=== PATIENT | male | born 1970 | race Caucasian/White ===

== ENCOUNTER 2019-03-25 15:17 | Emergency (ER) | payer OTHER ==
[~2019-03-25] VITALS: Ht 193 cm; Wt 113.4 kg
[~2019-03-25 15:17] MED LIST: ACET120S PO; ACET500 PO; AMLO10 PO; ASPI81EC PO; ATOR80 PO; AZIT250 PO; BUPR150T2 PO; Bactrim Ds Tab1 EACH PO; CARI350; CARI350 PO; CARV6.25 PO; CHOLESTEROL MED; CHOLESTEROL MED?; CIALIS; CYCL10 PO; Cleocin HCl300 MG PO; DIAZ2 PO; ERYT.5TO OU; FISH1000 PO; HYDACE10B PO; HYDACE5; HYDACE5 PO; HYDMOR4 PO; IBUP400 PO; IBUP600 PO; IBUP800 PO; LISHYD1012 PO; LISHYD2025 PO; LORA10ER PO; METPRE4DP PO; NEOPOLHYD OU; NORT10 PO; Naprosyn500 MG PO; Norco 5-325 Ta1 EACH PO; OXYACE5T PO; OXYACE7.5T PO; PROM25 PO; Percocet 10-321 EACH PO; Percocet 5-3251 EACH PO; Prednisone10 MG PO; Prednisone20 MG PO; ROSU10TA PO; RXHYDMOR2 PO; SERT50 PO; VARE1 PO; [UNRECOGNIZED DRUG - REMARK]; [UNRECOGNIZED DRUG - REMARK]
[2019-03-25] MEDS ORDERED: ONDA4ODT MM (17:00)
[2019-03-25] MEDS ORDERED: Robaxin-750750 MG PO (17:00)
== END 2019-03-25 17:10 | disposition home or self-care (01) ==
LOC: ER 15:17
DX: S09.90XA Unspecified injury of head, initial encounter (principal); S16.1XXA Strain of muscle, fascia and tendon at neck level, initial encounter; I10 Essential (primary) hypertension; E78.00 Pure hypercholesterolemia, unspecified; F17.200 Nicotine dependence, unspecified, uncomplicated; Z88.0 Allergy status to penicillin; Z79.899 Other long term (current) drug therapy; W10.9XXA Fall (on) (from) unspecified stairs and steps, initial encounter; Y92.009 Unspecified place in unspecified non-institutional (private) residence as the place of occurrence of the external cause
CPT/HCPCS: 70450; 72125; 99283-25

== ENCOUNTER 2020-03-29 09:34 | Emergency (ER) | payer OTHER ==
[~2020-03-29] VITALS: Ht 193 cm; Wt 117.9 kg
[~2020-03-29 09:34] MED LIST changes: +HYDR1TAB94 PO; +ONDA4ODT MM; +Robaxin-750750 MG PO; +Valium5 MG PO
[2020-03-29] MEDS ORDERED: TRAM50 PO (11:00)
== END 2020-03-29 11:15 | disposition home or self-care (01) ==
LOC: ER 09:34
DX: M75.31 Calcific tendinitis of right shoulder (principal); I10 Essential (primary) hypertension; F17.210 Nicotine dependence, cigarettes, uncomplicated; Z88.0 Allergy status to penicillin; Z79.899 Other long term (current) drug therapy
CPT/HCPCS: 73030; 99283-25

== ENCOUNTER 2020-04-22 15:42 | Inpatient (IN) | payer OTHER ==
[~2020-04-22] VITALS: Ht 193 cm; Wt 107.2 kg
[~2020-04-22 15:42] MED LIST changes: +TRAM50 PO
[2020-04-22 16:08] LABS: BASOPHILS ABSOLUTE AUTO 0.03 K/mm3 (0.00-0.23); BASOPHILS PERCENT AUTO 0 % (0-2); EOSINOPHILS ABSOLUTE AUTO 0.02 K/mm3 (0.00-0.68); EOSINOPHILS PERCENT AUTO 0 % (0-6); Hematocrit 50.3 % (37.0-53.0); Hemoglobin 17.5 g/dL (13.5-17.5); IMMATURE GRAN ABSOLUTE AUTO 0.04 K/mm3 (0.00-0.10); IMMATURE GRAN PERCENT AUTO 0 % (0-1); LYMPHOCYTES ABSOLUTE AUTO 2.33 K/mm3 (0.84-5.20); LYMPHOCYTES PERCENT AUTO 20 % (21-46); MONOCYTES ABSOLUTE AUTO 0.38 K/mm3 (0.16-1.47); MONOCYTES PERCENT AUTO 3 % (4-13); Mean Corpuscular HGB 30.2 pg (26.0-34.0); Mean Corpuscular HGB Conc 34.8 g/dL (31.5-36.5); Mean Corpuscular Volume 87 fL (80-100); Mean Platelet Volume 9.8 fL (9.1-12.4); NEUTROPHILS ABSOLUTE AUTO 9.03 K/mm3 (1.96-9.15); NEUTROPHILS PERCENT AUTO 76 % (41-73); Platelet Count 249 K/mm3 (150-400); RDW Coefficient Variation 13.4 % (11.7-14.2); RDW Standard Deviation 42.6 fL (35.1-46.3); Red Blood Cell Count 5.79 M/mm3 (4.30-5.90); White Blood Cell Count 11.83 K/mm3 (4.00-11.30)
[2020-04-22 16:42] LABS: Alanine Aminotransfer (ALT/SGP 65 U/L (12-78); Albumin, Blood 3.9 g/dL (3.4-5.0); Albumin/Globulin Ratio 1.2 (0.8-1.8); Alk Phos 65 U/L (50-136); Anion Gap 7 mmol/L (6-16); Aspartate Aminotrans (AST/SGOT 195 U/L (12-37); Bilirubin, Total 0.3 mg/dL (0.1-1.0); Blood Urea Nitrogen 14 mg/dL (8-24); Bun/Creatinine Ratio 15.9 (12.0-20.0); CO2, Blood 24 mmol/L (21-32); Calcium, Blood 9.4 mg/dL (8.5-10.1); Chloride, Blood 108 mmol/L (98-108); Creatinine, Blood 0.88 mg/dL (0.60-1.20); Globulin, Blood 3.3 g/dL (2.2-4.0); Glomerular Filtration Rate >60 (60-); Glucose, Blood 107 mg/dL (70-99); Potassium, Blood 4.1 mmol/L (3.5-5.5); Sodium, Blood 139 mmol/L (136-145); Total Protein, Blood 7.2 g/dL (6.4-8.2)
[2020-04-22 17:15] LABS: Calcium, Ionized (POC) 1.22 mmol/L (1.10-1.46); Chloride (POC) 104 mmol/L (98-108); Creatinine (POC) 0.9 mg/dL (0.8-1.3); Glucose (ISTAT POC) 95 mg/dL (70-99); Hemoglobin (POC) 17.3 g/dL (13.5-17.5); Sodium (POC) 138 mmol/L (135-148); Total CO2 (POC) 27 mmol/L (21-32)
--- NOTE | 2020-04-22 20:00 | NUR ---
PT ARRIVES TO ICU 7 FROM [facility] S/P PCI WITH RIGHT GROIN FEMORAL ACCESS. PT TO ROOM AT 1905. PT ON YOLY DRIP SECONDARY TO CHEST PAIN. ORDER FOR TITRATION FOR CHEST PAIN AND FOR HYPERTENSION. PT STATES THAT HE HAS A MODERATE HEADACHE AT THIS TIME. DR JEROME COMES TO ROOM. VERBAL ORDERS RECEIVED. PT'S AND HIS DAUGHTER COME TO THE ROOM. PT HAS FEMSTOP OVER PUNCTURE SITE WITH PASSIVE PRESSURE SECONDARY TO SMALL HEMATOMA IN FRONT WORKER. WILL REVIEW CHART AND PLAN OF CARE FOR THIS PT.
[2020-04-22] MEDS ORDERED: Prinivil10 MG PO (22:28)
[2020-04-22] MEDS ORDERED: IBUP800 PO (22:30)
--- NOTE | 2020-04-22 23:00 | NUR ---
PT HAS NEARED COMPLETION OF RESTRICTION IN POSITIONING SECONDARY TO RIGHT GROIN ACCESS. HAVE BEEN CONSERVATIVE WITH RESTICTION SECONDARY TO HEMATOMA WHILE IN SUPERVISOR KEYMODULE ASSEMBLY. NO HEMATOMA OR OOZING TO NOTE. WILL OBTAIN ORTHSTATIC BLOOD PRESSURES ON NEXT GROIN CHECK IF STABLE.
--- NOTE | 2020-04-23 01:31 | NUR ---
PT HAS BEEN OFF NITRO DRIP SINCE EARLIER. NO CHEST PAIN AT THIS TIME. ORTHOSTATIC BLOOD BLOOD PRESSURES DONE. SEE FLOWSHEET FOR DETAILS. NO MAJOR CHANGES IN PRESSURES WITH POSITION CHANGES. NO HEMATOMA OR OOZING AFTER BEING OUT OF BED. NO COMPLAINTS OF NAUSEA. WILL CONTINUE TO MONITOR.
[2020-04-23 03:37] LABS: BASOPHILS ABSOLUTE AUTO 0.02 K/mm3 (0.00-0.23); BASOPHILS PERCENT AUTO 0 % (0-2); EOSINOPHILS ABSOLUTE AUTO 0.03 K/mm3 (0.00-0.68); EOSINOPHILS PERCENT AUTO 0 % (0-6); Hematocrit 48.8 % (37.0-53.0); Hemoglobin 16.8 g/dL (13.5-17.5); IMMATURE GRAN ABSOLUTE AUTO 0.03 K/mm3 (0.00-0.10); IMMATURE GRAN PERCENT AUTO 0 % (0-1); LYMPHOCYTES PERCENT AUTO 23 % (21-46); MONOCYTES ABSOLUTE AUTO 0.63 K/mm3 (0.16-1.47); MONOCYTES PERCENT AUTO 8 % (4-13); Mean Corpuscular HGB 29.9 pg (26.0-34.0); Mean Corpuscular HGB Conc 34.4 g/dL (31.5-36.5); Mean Corpuscular Volume 87 fL (80-100); Mean Platelet Volume 9.7 fL (9.1-12.4); NEUTROPHILS ABSOLUTE AUTO 5.77 K/mm3 (1.96-9.15); NEUTROPHILS PERCENT AUTO 69 % (41-73); Platelet Count 219 K/mm3 (150-400); RDW Coefficient Variation 13.5 % (11.7-14.2); RDW Standard Deviation 43.2 fL (35.1-46.3); Red Blood Cell Count 5.61 M/mm3 (4.30-5.90); White Blood Cell Count 8.38 K/mm3 (4.00-11.30)
[2020-04-23 03:53] LABS: Anion Gap 6 mmol/L (6-16); Blood Urea Nitrogen 11 mg/dL (8-24); CO2, Blood 26 mmol/L (21-32); Calcium, Blood 9.5 mg/dL (8.5-10.1); Chloride, Blood 107 mmol/L (98-108); Creatinine, Blood 0.92 mg/dL (0.60-1.20); Glomerular Filtration Rate >60 (60-); Glucose, Blood 100 mg/dL (70-99); Potassium, Blood 4.4 mmol/L (3.5-5.5); Sodium, Blood 139 mmol/L (136-145)
--- NOTE | 2020-04-23 06:30 | NUR ---
PT HAS BEEN ABLE TO MOVE ABOUT IN BED ON HIS OWN. UP TO VOID. NO COMPLAINTS OF CHEST PAIN OR PRESSURE. DENIES DIZZINESS. REMAINS OFF NITRO DRIP. RIGHT GROIN SITE WITHOUT HEMATOMA OR OOZING. GOOD DISTAL CMS CHECKS. WILL CONTINUE TO MONITOR PT, AND WILL REPORT OFF TO ONCOMING RN.
--- NOTE | 2020-04-23 07:48 | NUR ---
Assumed care of pt at 0700. Bedside report received from Mat ALLEN. Pt A&O x 4. Answers questions. Follows commands. Verbalizes needs. Pleasant and cooperative with care. Pt on room air. SpO2 90% or greater. SR with BBB per monitor. Rate 80s. Puncture site to right groin from right femoral artery access for PCI. Site free of new drainage. No bruising or hematoma. Color, sensation, pulses, capillary refill equal BLE. Pt denies chest pain, shortness of breath, lightheadedness or dizziness.
--- NOTE | 2020-04-23 10:30 | NUR ---
Dr Francisco Almanzar, pig machine operator helper, in to see patient. Provider states that he will review the echocardiogram and if it looks "good", he will discharge the patient today. This RN inquired if provider would like a coronary risk panel. Provider states this would be more appropriate for outpatient follow up instead of after an acute ND. Provider states pt to follow up with cardiology 2 weeks after discharge.
--- NOTE | 2020-04-23 12:15 | NUR ---
ADMIT: 04/22/20DISCHARGE: DX: STEMI CC: MARIE CALL: RESIDENCE: home w/ spouse CAREGIVER:Eboni Abraham, Spouse / Partner, DX: HTN, anxiety & depression, thromboangitis obliterans, see list DME: none CCM: none HOME HEALTH: None SUMMARY:Admit: 04/22/20 04/23/20- pt had angiogram completed yesterday. -francisco
--- NOTE | 2020-04-23 12:53 | NUR ---
Echocardiogram performed.
[2020-04-23] MEDS ORDERED: ASPI81CH PO (14:01)
[2020-04-23] MEDS ORDERED: ATOR80 PO (14:02)
[2020-04-23] MEDS ORDERED: METO50ER PO (14:03)
[2020-04-23] MEDS ORDERED: TICA90TA PO (14:03)
--- NOTE | 2020-04-23 14:57 | NUR ---
Patient discharged from unit at 1450 with spouse. Discharge education given to patient and spouse. Pt discharged with stent card in his posession. Medications faxed to [facility]. Pt did not have orders for nicotine patches, however he said his strategy for stopping smoking is to taper down instead of quit "cold-turkey". Pt educated on new medications and when to take them, as well as side effects. Pt verbalized understanding. Educated on groin site care and what to do if it bleeds. Pt verbalizes understanding. Pt signed Plavix/Brilinta contract and groin site care instructions. This RN scheduled pt's follow up appointment with Dr Jones. Called [facility] medicine to schedule follow up, office stated they would call patient for follow up appointment.
== END 2020-04-23 14:50 | disposition home or self-care (01) | DRG 247 ==
LOC: ER 15:42 → ICUW 17:16 → ICUE 18:29
PROVIDERS: Emergency Medicine; Physician Assistant; ADMIT Internal Medicine Interventional Cardiology
PROC: 4A023N7 Measurement of Cardiac Sampling and Pressure, Left Heart, Percutaneous Approach (ICD-10-PCS; principal; 2020-04-22)
PROC: 027034Z Dilation of Coronary Artery, One Artery with Drug-eluting Intraluminal Device, Percutaneous Approach (ICD-10-PCS; 2020-04-22)
PROC: 02703ZZ Dilation of Coronary Artery, One Artery, Percutaneous Approach (ICD-10-PCS; 2020-04-22)
PROC: B2111ZZ Fluoroscopy of Multiple Coronary Arteries using Low Osmolar Contrast (ICD-10-PCS; 2020-04-22)
PROC: B241ZZ3 Ultrasonography of Multiple Coronary Arteries, Intravascular (ICD-10-PCS; 2020-04-22)
DX: I21.09 ST elevation (STEMI) myocardial infarction involving other coronary artery of anterior wall (principal); I10 Essential (primary) hypertension; M54.9 Dorsalgia, unspecified; G89.29 Other chronic pain; F17.210 Nicotine dependence, cigarettes, uncomplicated; Z79.899 Other long term (current) drug therapy; Z79.891 Long term (current) use of opiate analgesic
CPT/HCPCS: 36415; 71046; 80047; 80048; 80053; 84484; 85014; 85025; 85347; 92921; 92941; 92978; 93005; 93010; 93306; 93454; 99152; 99153; 99285-25; A9270; C1725; C1753; C1760; C1769; C1874; C1887; C1894; C9606; J1644; J2250; J3010; J3246; J7030; Q9967

== ENCOUNTER 2021-10-19 06:43 | Inpatient (IN) | payer OTHER ==
[~2021-10-19] VITALS: Ht 188 cm; Wt 118.3 kg
[~2021-10-19 06:43] MED LIST changes: +ASPI81CH PO; +AZIT500 PO; +LIDO700A20 TOP; +METO50ER PO; +Prinivil10 MG PO; +TICA90TA PO
[2021-10-19 06:59] LABS: BASOPHILS ABSOLUTE AUTO 0.02 K/mm3 (0.00-0.23); BASOPHILS PERCENT AUTO 0 % (0-2); Base Excess Venous 4.5 mmol/L; Bicarbonate Venous 25.7 mmol/L (24.0-30.0); EOSINOPHILS ABSOLUTE AUTO 0.35 K/mm3 (0.00-0.68); EOSINOPHILS PERCENT AUTO 4 % (0-6); Hematocrit 48.1 % (37.0-53.0); Hemoglobin 16.5 g/dL (13.5-17.5); IMMATURE GRAN ABSOLUTE AUTO 0.02 K/mm3 (0.00-0.10); IMMATURE GRAN PERCENT AUTO 0 % (0-1); LYMPHOCYTES ABSOLUTE AUTO 1.83 K/mm3 (0.84-5.20); LYMPHOCYTES PERCENT AUTO 21 % (21-46); MONOCYTES ABSOLUTE AUTO 0.35 K/mm3 (0.16-1.47); MONOCYTES PERCENT AUTO 4 % (4-13); Mean Corpuscular HGB 30.1 pg (26.0-34.0); Mean Corpuscular HGB Conc 34.3 g/dL (31.5-36.5); Mean Corpuscular Volume 88 fL (80-100); NEUTROPHILS ABSOLUTE AUTO 6.25 K/mm3 (1.96-9.15); NEUTROPHILS PERCENT AUTO 71 % (41-73); PCO2 Venous 55.5 mmHg (38-42); Platelet Count 273 K/mm3 (150-400); RDW Coefficient Variation 12.6 % (11.7-14.2); RDW Standard Deviation 41.1 fL (35.1-46.3); Red Blood Cell Count 5.49 M/mm3 (4.30-5.90); White Blood Cell Count 8.82 K/mm3 (4.00-11.30); pH Blood Venous 7.35 (7.34-7.37)
[2021-10-19 07:16] LABS: Albumin, Blood 3.5 g/dL (3.4-5.0); Albumin/Globulin Ratio 0.9 (0.8-1.8); Bilirubin, Total 0.2 mg/dL (0.1-1.0); Bun/Creatinine Ratio 14.7 (12.0-20.0); Calcium, Blood 9.6 mg/dL (8.5-10.1); Creatinine, Blood 0.89 mg/dL (0.60-1.20); Globulin, Blood 4.1 g/dL (2.2-4.0); Potassium, Blood 4.5 mmol/L (3.5-5.5); Total Protein, Blood 7.6 g/dL (6.4-8.2)
[2021-10-19 07:58] LABS: Influenza A, PCR NEGATIVE (NEGATIVE); Influenza B, PCR NEGATIVE (NEGATIVE); Resp Syncytial Virus, PCR NEGATIVE (NEGATIVE); SARS-Cov-2 (COVID-19) PCR, MMC NEGATIVE (NEGATIVE)
[2021-10-19] MEDS ORDERED: BENZONATATE100 MG PO (08:55)
[2021-10-19] MEDS ORDERED: OMEP20ER PO (08:56)
[2021-10-19] MEDS ORDERED: CLOP75 PO (08:57)
[2021-10-19 09:28] LABS: Anti-Xa UFH, PHA Monitoring <0.10 IU/mL; International Normalized Ratio 1.03; Prothrombin Time Results 10.8 Sec (9.7-11.5)
--- NOTE | 2021-10-19 12:30 | NUR ---
INITIAL ASSESSMENT PATIENT ARRIVED TO ICU FROM ER AROUND 1155. PATIENT ABLE TO TRANSFER SELF TO ICU BED. PATIENT ALERT AND ORIENTED X 4. AFEBRILE. SBA FOR LINES/ CORDS. PATIENT COMPLAINS OF 6/10 PAIN IN "LUNGS". PATIENT SATTING 90% AND GREATER ON 5 L NC. AMRITA CLEAR; RHONCHI NOTED IN ALL OTHER LUNG LOBES. PATIENT SOB WITH EXERTION. PATIENT HAS COUGH THAT OCCASIONALLY PRODUCES THICK, SILVA SPUTUM. PATIENT IN SR/ ST WITH BBB, HR 90S TO LOW 100S. SBP LOW 100S TO 1-TEENS. GI WNL. WNL. SKIN APPEARS C/D/I. HEPARIN INFUSING AT 15 UNITS/ KG/ HOUR. AT BEDSIDE. PATIENT ORIENTED TO UNIT, ROOM AND CALL LIGHT. BED LOW, CALL LIGHT IN REACH. WILL CONTINUE TO MONITOR THROUGHOUT SHIFT.
--- NOTE | 2021-10-19 15:29 | NUR ---
SHIFT SUMMARY PATIENT REMAINED ALERT AND ORIENTED X 4, AFEBRILE. PATIENT HAS BEEN RELAXING IN ROOM, WATCHING TV WITH . NICOTINE PATCH PLACED ON PATIENT THIS SHIFT PER PATIENT REQUEST. PATIENT SMOKES 1 PPD. PATIENT HAS BEEN GIVEN SCHEDULED IBUPROFEN AND PRN MORPHINE FOR COMPLAINTS OF "LUNG PAIN". PATIENT STATED IBUPROFEN DID NOT HELP BUT THAT MORPHINE DID. PATIENT REMAINS SATTING WELL ON 5 L NC. PATIENT REMAINS SOB WITH EXERTION. PATIENT CONTINUES TO HAVE COUGH WITH OCCASIONAL THICK, SILVA MUCUS. PATIENT REMAINED SR TO ST WITH BBB, HR 70S TO LOW 100S. SBP LOW 100S TO 140S. NO BM THIS SHIFT. PATIENT ON CLEAR LIQUID DIET; TOLERATING WELL. WNL. URINE YELLOW IN COLOR. HEPARIN REMAINS AT 15 UNITS/ KG/ HOUR. NO COMPLAINTS AT THIS TIME. PATIENT WILL BE TRANSFERRING TO PCU, ROOM 05 SHORTLY.
--- NOTE | 2021-10-19 15:58 | NUR ---
PATIENT SUCCESSFULLY TRANSFERRED TO PCU, ROOM 05. BELONGINGS SENT WITH PATIENT. FOLLOWED.
--- NOTE | 2021-10-19 17:16 | NUR ---
SHIFT SUMMARY ASSUMED CARE FROM ICU. A/A/OX4, HEPARIN INFUSING AT 15UNITS/KG. INDEPENDANT IN ROOM, SPOUSE AT BEDSIDE. EVALUATED BY DR. BECKER IN EVENING, PLAN FOR PROCEDURE TOMORROW, NPO AFTER MIDNIGHT. WILL CONTINUE TO MONITOR AND TREAT UNTIL CHANGE OF SHIFT.
--- NOTE | 2021-10-19 17:48 | NUR ---
HEPARIN BOLUS OF 4,800UNITS GIVEN AND INFUSION TITRATED UP TO 19UNITS/KG PER PHARMACY EMAR.
--- NOTE | 2021-10-20 05:38 | NUR ---
SHIFT SUMMARY Assumed care of pt at 1900. A/Ox4, independent in room. C/o R lung and L flank area pain, relieved with repositioning and meds per emar. Maintains over 92% on 5L NC, LS dim t/o. Tachypnea and shallow breathing pattern noted and TORRES. SR on tele with BBB and PVC. SBP low 100's with MAP>65. Will report to dayshift ALEJANDRO.
[2021-10-20 07:17] LABS: BASOPHILS ABSOLUTE AUTO 0.04 K/mm3 (0.00-0.23); BASOPHILS PERCENT AUTO 0 % (0-2); EOSINOPHILS ABSOLUTE AUTO 0.22 K/mm3 (0.00-0.68); EOSINOPHILS PERCENT AUTO 2 % (0-6); Hematocrit 44.7 % (37.0-53.0); Hemoglobin 14.9 g/dL (13.5-17.5); IMMATURE GRAN ABSOLUTE AUTO 0.02 K/mm3 (0.00-0.10); IMMATURE GRAN PERCENT AUTO 0 % (0-1); LYMPHOCYTES PERCENT AUTO 19 % (21-46); MONOCYTES PERCENT AUTO 4 % (4-13); Mean Corpuscular HGB 29.7 pg (26.0-34.0); Mean Corpuscular HGB Conc 33.3 g/dL (31.5-36.5); Mean Corpuscular Volume 89 fL (80-100); Mean Platelet Volume 9.3 fL (9.1-12.4); NEUTROPHILS PERCENT AUTO 74 % (41-73); Platelet Count 239 K/mm3 (150-400); RDW Coefficient Variation 13.1 % (11.7-14.2); RDW Standard Deviation 42.8 fL (35.1-46.3); Red Blood Cell Count 5.01 M/mm3 (4.30-5.90); White Blood Cell Count 9.88 K/mm3 (4.00-11.30)
[2021-10-20 07:27] LABS: Magnesium, Blood 2.1 mg/dL (1.6-2.4)
[2021-10-20 07:28] LABS: Albumin, Blood 3.2 g/dL (3.4-5.0); Albumin/Globulin Ratio 0.9 (0.8-1.8); Bilirubin, Total 0.4 mg/dL (0.1-1.0); Bun/Creatinine Ratio 25.9 (12.0-20.0); Creatinine, Blood 0.89 mg/dL (0.60-1.20); Globulin, Blood 3.6 g/dL (2.2-4.0); Total Protein, Blood 6.8 g/dL (6.4-8.2)
--- NOTE | 2021-10-20 07:40 | NUR ---
INITIAL ASSESSMENT: Patient is awake sitting up in bed visiting with his . He is alert and oriented. He reports 7/10 lower back and bilateral abd pain, he is medicated with ibuprophen and Morphine. HRR, SR in the 90s. LS DIM T/O, Biox 96% on 5l NC. Pt is tachypnec with activity. BT+, no abd tenderness with light palpation. PPP. VSS. Patient given AM meds. Hep gtt infusing at 19u/kg/hr. He denies other needs at this time. Call light in reach, Will continue to monitor.
--- NOTE | 2021-10-20 10:13 | NUR ---
[facility] staff at bedside to take patient down for thrombectomy.
--- NOTE | 2021-10-20 12:50 | NUR ---
PATIENT WAS TRANSFERRED TO ICU 06 POST CATH. REPORT GIVEN TO DINA CABIN MAN.
--- NOTE | 2021-10-20 13:18 | NUR ---
PT TO ICU FROM RN NEONATAL ICU. PT IS AWAKE AND ALERT AND ORIENTED. HE IS LYING FLAT/SUPINE IN THE BED. HE HAS AN A-LINE TO HIS RIGHT FEM ARTERY AND A V-STASIS PATCH WITH A SILK STITCH IS IN PLACE FOR THE VENOUS ACCESS THAT OCCURED IN THE RN NEONATAL ICU. HE CAME ON ROOM AIR SATURATIONS 88%. HE WAS PUT IN 2L NC HUMIDIFIED OXYGEN TO KEEP SAO2 AT 92%. HE HAS EXPIRATORY WHEEZES TO RIGHT LUNG AND CLEAR LUNG SOUNDS ON LEFT. HE HAS A SOFT ABD. AND POSITIVE BT'S. HIS ARTERIAL SBP IS 20-30 POINTS HIGHER THAN HIS RIGH FORARME NIBP NUMBERS. PULSES PALPABLE X 4 EXT. IV TO LEFT AC IS SL. CARDIAC RHYTHM IS SINUS TO SINUS TACH AT THIS TIME. PATIENT NOT COMPLAINING OF PAIN OR SOB AT THIS TIME. AND DAUGHTER BROUGHT TO ROOM, FAMILY UPDATED WITH PATIENT TOGETHER. WILL CONTINUE TO FOLLOW DIRECTED.
--- NOTE | 2021-10-20 19:00 | NUR ---
ASSUMED CARE PT AWAKE AND ALERT. ORIENTED X4. LAYING IN BED AT 20 DEGREES, WATCHING TV. APPEARS COMFORTABLE AT THIS TIME. MONITOR SHOWS SR W/ BBB. VSS AT THIS TIME. HEPARIN GTT INFUSING AT 19U/KG/HR. ROSELYN TO RIGHT FEMORAL. R FEMORAL VENOUS SITE SOFT W/ DRESSING D/I. PEDAL PULSES INTACT, FEET WARM AND PINK. TOLERATING DIET, VOIDING WITHOUT DIFFICULTLY.
--- NOTE | 2021-10-20 19:46 | NUR ---
END OF SHIFT NOTE. PATIENT HAS THE HEPARIN DRIP GOING AGAIN AT 19UNITS/HR TO PIV. HE HAS PAIN TO HIS BACK, HE IS TAKING PAIN MEDICATION AND IT IS HELPING. HIS HEAD IS IS ELEVATED TO 20 DEGREES HOWEVER THE ROSELYN TO HIS RIGHT GROIN THAT HE CAME BACK WITH FROM THE [facility] IS STILL IN PLACE. SO IS THE VENOUS STASIS SILK STITCH. DR BECKER CAME BY THIS EVENING TO FOLLOW UP AND IS LEAVING THE STITCH IN PLACE TILL TOMORROW AM. DR WATSON ALSO CAME BY TO FOLLOW UP WITH PT. OK TO PULL A LINE.. SEE ORDERS GIVEN. FAMILY HAS BEEN AT BEDSIDE ALL AFTERNOON AND HELPING TO FEED HIM. REPORT GIVEN OFF TO EVENING SHIFT TO RESUME CARE.
--- NOTE | 2021-10-20 21:15 | NUR ---
HEPARIN OFF HEPARIN TURNED OFF AT THIS TIME FOR ROSELYN REMOVAL.
--- NOTE | 2021-10-20 22:33 | NUR ---
A-LINE REMOVAL RIGHT FEMORAL ARTERIAL LINE REMOVED AT 2220. DIRECT MANUAL PRESSURE HELD FOR 10 MINUTES. SITE IS SOFT. NO BLEEDING/OOZING NOTED AT THIS TIME. TEGADERM CHG DRSG APPLIED.
[2021-10-21 03:36] LABS: BASOPHILS ABSOLUTE AUTO 0.03 K/mm3 (0.00-0.23); BASOPHILS PERCENT AUTO 0 % (0-2); EOSINOPHILS ABSOLUTE AUTO 0.15 K/mm3 (0.00-0.68); EOSINOPHILS PERCENT AUTO 2 % (0-6); Hematocrit 40.5 % (37.0-53.0); Hemoglobin 13.5 g/dL (13.5-17.5); IMMATURE GRAN ABSOLUTE AUTO 0.02 K/mm3 (0.00-0.10); IMMATURE GRAN PERCENT AUTO 0 % (0-1); LYMPHOCYTES ABSOLUTE AUTO 2.48 K/mm3 (0.84-5.20); LYMPHOCYTES PERCENT AUTO 33 % (21-46); MONOCYTES ABSOLUTE AUTO 0.41 K/mm3 (0.16-1.47); MONOCYTES PERCENT AUTO 6 % (4-13); Mean Corpuscular HGB 29.9 pg (26.0-34.0); Mean Corpuscular HGB Conc 33.3 g/dL (31.5-36.5); Mean Corpuscular Volume 90 fL (80-100); Mean Platelet Volume 9.4 fL (9.1-12.4); NEUTROPHILS ABSOLUTE AUTO 4.37 K/mm3 (1.96-9.15); NEUTROPHILS PERCENT AUTO 59 % (41-73); Platelet Count 194 K/mm3 (150-400); RDW Coefficient Variation 12.9 % (11.7-14.2); RDW Standard Deviation 42.6 fL (35.1-46.3); Red Blood Cell Count 4.52 M/mm3 (4.30-5.90); White Blood Cell Count 7.46 K/mm3 (4.00-11.30)
[2021-10-21 04:01] LABS: Bun/Creatinine Ratio 28.8 (12.0-20.0); Calcium, Blood 8.7 mg/dL (8.5-10.1); Creatinine, Blood 0.83 mg/dL (0.60-1.20); Potassium, Blood 4.2 mmol/L (3.5-5.5)
--- NOTE | 2021-10-21 05:50 | NUR ---
SHIFT SUMMARY NO ACUTE CHANGES DURING NOC. SLEPT INTERMITTENTLY. ORIENTED AND COOPERATIVE WITH CARE WHEN AWAKE. VSS DURING NOC. HR 50S-60s WHEN ASLEEP. REMAINS ON 1.5L NC- SATS STABLE. DENIES C/O SOB OF DYSPNEA. MEDICATED WITH MS 2MG IV X 3 DOSES DURING SHIFT FOR C/O BACK PAIN THAT WRAPS AROUND TO ABD. TOLERATING DIET. VOIDING WITHOUT DIFFICULTY. HEPARIN GTT INCREASED FROM 19 UNITS/KG/HR TO 21 UNITS/KG/HR PER PHARMACY. RIGHT FEMORAL ARTERIAL DC'D EARLIER IN SHIFT- SITE IS SOFT. RIGHT FEMORAL VENOUS ACCESS SITE IS SOFT WITH DRSG C/D/I. WILL REPORT TO ONCOMING RN WHEN AVAILABLE.
--- NOTE | 2021-10-21 09:48 | NUR ---
AM SHIFT SUMMARY: ASSUMED CARE OF PATIENT AT 0700. PT ALERT AND ORIENTED THIS MORNING WITH PT'S AT BEDSIDE AT 0730. PT HAS FULL ROM AND INDEPENDENT BED MOBILITY AT THIS TIME. PT HAS CLEAR L/S THROUGHOUT WITH NO COPMPLAINTS OF SOB; PT CURRENTLY ON RA. O2 LEVELS ARE 92< AND RR 14-16. PT NSR WITH HR IN THE 60'S AND SBP IN THE 130'S. PT IS HOOKED UP TO THE CONTINUOUS CHILD DAY CARE TEACHER AT THIS TIME. THE PT IS ON BEDREST AT THIS TIME BUT IS ABLE TO VOID INDEPENDENTLY WITH THE URINAL. THE PT HAS HYPERACTIVE BS IN ALL FOUR QUADRANTS. PT CURRENTLY ON A CARDIAC DIET. PT GIVEN FRESH WATER THIS MORNIGN WITH AM MEDS. PT'S BLE ARE COOL TO THE TOUCH, BUT CAP REFIL REMAINS < 3 SECONDS. ALL LINES FLUSHED AND REMAIN PATENT. PT HAS COMPLAINTS OF PAIN IN HIS LOWER/MID BACK REGION THAT IS DESCRIBED A CONSTANT, SHARP PAIN; PT MEDICATED PER EMAR. WILL CONTINUE TO MONITOR THROUGHOUT THE SHIFT.
--- NOTE | 2021-10-21 15:39 | NUR ---
AFTERNOON UPDATE: DR. WATSON AT BEDSIDE TO EVALUATE THE PATIENT AT 1415 AND HAS CLEARED THE PT FOR DISCHARGE PENDING LISA OPINION. THE PA WORKING WITH DR. BECKER CAME TO REMOVE THE PURSE CLOSURE AT 1510.
[2021-10-21] MEDS ORDERED: ACET325 PO (16:36)
[2021-10-21] MEDS ORDERED: NICO21TP TOP (16:37)
[2021-10-21] MEDS ORDERED: ELIQUIS5 M2 PO (16:38)
[2021-10-21] MEDS ORDERED: BUPROPION XL150 M1 PO (16:39)
--- NOTE | 2021-10-21 18:04 | NUR ---
SHIFT SUMMARY: PT CLEARED FOR DISCHARGE AT 1545. PT HAD BOTH PERIPHREAL IV'S IN THE LEFT ARM REMOVED. CLOSURE DEVICE SITE WAS WITHOUT DRAINAGE OR BLEEDING; SMALL HEMATOMA FELT DIRECTLY UNDERNEATH INSERTION SITE. PT HAD NO C/O OF PAIN IN R. GROIN SITE. THE PT WAS EDUCATED ON STANDARD CARE OF SITE. THE PT RECIEVED DISCHARGE PAPERWORK AND WAS EDUCATION ON NEW MEDICATION REGIMEN THAT WILL BE STARTED AT HOME. PT'S PRESCRIPTIONS SENT TO HIS PHARMACY OF CHOICE. REFERAL'S TO 'S OFFICE WAS SENT OUT AND THE PT WAS EDUCATED ON THE NEED TO FOLLOW-UP WITH DR. WATSON WITHIN ONE WEEK AFTER DISCHARGE. THE PT WAS GIVEN MORE INFORMATION ABOUT PE AND DVT'S AND ALL QUESTIONS WERE ANSWERED AT THIS TIME. THE PT LEFT THE UNIT AT 1650 AND WAS TRANSFERRED TO HIS DAUGHTER VEHICLE VIA WHEELCHAIR.
== END 2021-10-21 17:00 | disposition home or self-care (01) | DRG 163 ==
LOC: ER 06:43 → PCU 06:44 → ICUW 06:44 → ICUE 11:48 → PCU 15:24 → ICUE 10-20 12:15
PROVIDERS: Emergency Medicine; ADMIT Internal Medicine
PROC: 02CR3ZZ Extirpation of Matter from Left Pulmonary Artery, Percutaneous Approach (ICD-10-PCS; principal; 2021-10-20)
PROC: 02CQ3ZZ Extirpation of Matter from Right Pulmonary Artery, Percutaneous Approach (ICD-10-PCS; 2021-10-20)
PROC: 02CP3ZZ Extirpation of Matter from Pulmonary Trunk, Percutaneous Approach (ICD-10-PCS; 2021-10-20)
PROC: 5A09357 Assistance with Respiratory Ventilation, Less than 24 Consecutive Hours, Continuous Positive Airway Pressure (ICD-10-PCS; 2021-10-20)
DX: I26.92 Saddle embolus of pulmonary artery without acute cor pulmonale (principal); J96.01 Acute respiratory failure with hypoxia; I82.452 Acute embolism and thrombosis of left peroneal vein; I82.432 Acute embolism and thrombosis of left popliteal vein; I82.412 Acute embolism and thrombosis of left femoral vein; Z20.822 Contact with and (suspected) exposure to COVID-19; E78.5 Hyperlipidemia, unspecified; F41.9 Anxiety disorder, unspecified; I25.10 Atherosclerotic heart disease of native coronary artery without angina pectoris; E78.00 Pure hypercholesterolemia, unspecified; T68.XXXA Hypothermia, initial encounter; I10 Essential (primary) hypertension; G89.29 Other chronic pain; M54.9 Dorsalgia, unspecified; F17.210 Nicotine dependence, cigarettes, uncomplicated; Z71.6 Tobacco abuse counseling; I25.2 Old myocardial infarction; Z98.1 Arthrodesis status; Z95.5 Presence of coronary angioplasty implant and graft; Z98.890 Other specified postprocedural states; Z88.0 Allergy status to penicillin; Z79.02 Long term (current) use of antithrombotics/antiplatelets; Z79.82 Long term (current) use of aspirin; Z79.899 Other long term (current) drug therapy
CPT/HCPCS: 0241U; 36015; 36245; 36415; 37184; 37185; 71045; 71260; 75710; 75741; 75820; 75825; 76937; 80048; 80053; 82803; 83735; 83880; 84484; 85025; 85347; 85520; 85610; 85730; 93005; 93010; 93306; 93970; 94660; 94760; 96365; 96375; 96376; 99152; 99153; 99285-25; A9270; C1751; C1769; C1887; C1894; G0378; J1200; J1644; J1720; J2250; J2270; J2405; J3010; J7030; J7040; Q9967

== ENCOUNTER 2023-04-24 02:46 | Observation (INO) | payer OTHER ==
[2023-04-24] VITALS (19 sets, daily range): BP systolic 127–163; BP diastolic 83–106
[~2023-04-24] VITALS: Ht 188 cm; Wt 110.0 kg
[~2023-04-24 02:46] MED LIST changes: +ACET325 PO; +BENZONATATE100 MG PO; +BUPROPION XL150 M1 PO; +CLOP75 PO; +ELIQUIS5 M2 PO; +NICO21TP TOP; +OMEP20ER PO
[2023-04-24] MEDS ORDERED: Nitroglycerin 0.4 MG SUBL SL ONE (02:55)
[2023-04-24] MEDS ORDERED: Nitroglycerin 0.4 MG SUBL ONE (02:56)
[2023-04-24 03:05] LABS: BASOPHILS ABSOLUTE AUTO 0.03 K/mm3 (0.00-0.23); BASOPHILS PERCENT AUTO 1 % (0-2); EOSINOPHILS ABSOLUTE AUTO 0.14 K/mm3 (0.00-0.68); EOSINOPHILS PERCENT AUTO 2 % (0-6); Hematocrit 41.6 % (37.0-53.0); IMMATURE GRAN ABSOLUTE AUTO 0.01 K/mm3 (0.00-0.10); IMMATURE GRAN PERCENT AUTO 0 % (0-1); LYMPHOCYTES ABSOLUTE AUTO 2.52 K/mm3 (0.84-5.20); LYMPHOCYTES PERCENT AUTO 38 % (21-46); MONOCYTES ABSOLUTE AUTO 0.33 K/mm3 (0.16-1.47); MONOCYTES PERCENT AUTO 5 % (4-13); Mean Corpuscular HGB 30.8 pg (26.0-34.0); Mean Corpuscular HGB Conc 33.7 g/dL (31.5-36.5); Mean Corpuscular Volume 91 fL (80-100); Mean Platelet Volume 9.7 fL (9.1-12.4); NEUTROPHILS PERCENT AUTO 54 % (41-73); Platelet Count 222 K/mm3 (150-400); RDW Standard Deviation 43.8 fL (35.1-46.3); Red Blood Cell Count 4.55 M/mm3 (4.30-5.90); White Blood Cell Count 6.63 K/mm3 (4.00-11.30)
[2023-04-24] MEDS ORDERED: Clopidogrel Bisulfate 300 MG Cap ONE ×2 (03:08→04:06)
[2023-04-24] MEDS ORDERED: FentaNYL Citrate 50 MCG/ML 2 ML Injection IV ONE (03:15)
[2023-04-24] MEDS ORDERED: NS 1,000 ML IV ONE (03:17)
[2023-04-24 03:20] LABS: Calcium, Ionized (POC) 1.21 mmol/L (1.10-1.46); Chloride (POC) 107 mmol/L (98-108); Creatinine (POC) 1.1 mg/dL (0.8-1.3); Glucose (ISTAT POC) 114 mg/dL (70-99); Potassium (POC) 3.9 mmol/L (3.5-5.5); Sodium (POC) 143 mmol/L (135-148); Total CO2 (POC) 26 mmol/L (21-32)
[2023-04-24] MEDS ORDERED: NS 2,000 ML IV ONE (03:30)
[2023-04-24] MEDS ORDERED: NS 250 ML IV ONE (03:30)
[2023-04-24] MEDS ORDERED: Verapamil HCL 2.5 MG/ML 2ML Injection ONE (03:30)
[2023-04-24] MEDS ORDERED: Midazolam HCl 1MG / ML 2ML Vial ONE (03:31)
[2023-04-24] MEDS ORDERED: FentaNYL Citrate 50 MCG/ML 2 ML Injection ONE (03:31)
[2023-04-24 03:54] LABS: International Normalized Ratio 0.99; Prothrombin Time Results 10.4 Sec (9.7-11.5)
[2023-04-24] MEDS ORDERED: Tirofiban HCL Monohydrate 3.75 MG/15 ML Vial ONE (03:57)
[2023-04-24] MEDS ORDERED: FLU VACC QS2023-24(6MOS UP)/PF 60 MCG/0.5 ML SYRINGE IM ONE (04:00)
[2023-04-24] MEDS ORDERED: Acetaminophen 325 MG TABLET PO PRN (04:05)
[2023-04-24] MEDS ORDERED: Ondansetron HCl 2 MG / ML 2ML Vial IV PRN (04:05)
[2023-04-24] MEDS ORDERED: NS 1,000 ML IV SCH (05:00)
[2023-04-24 05:12] LABS: Albumin, Blood 3.9 g/dL (3.4-5.0); Albumin/Globulin Ratio 1.1 (0.8-1.8); Bilirubin, Total 0.3 mg/dL (0.1-1.0); Bun/Creatinine Ratio 16.7 (12.0-20.0); Calcium, Blood 9.9 mg/dL (8.5-10.1); Creatinine, Blood 1.02 mg/dL (0.60-1.20); Globulin, Blood 3.5 g/dL (2.2-4.0); Total Protein, Blood 7.4 g/dL (6.4-8.2)
[2023-04-24 05:12] LABS: BASOPHILS ABSOLUTE AUTO 0.04 K/mm3 (0.00-0.23); BASOPHILS PERCENT AUTO 1 % (0-2); EOSINOPHILS ABSOLUTE AUTO 0.07 K/mm3 (0.00-0.68); EOSINOPHILS PERCENT AUTO 1 % (0-6); Hemoglobin 15.5 g/dL (13.5-17.5); IMMATURE GRAN ABSOLUTE AUTO 0.02 K/mm3 (0.00-0.10); IMMATURE GRAN PERCENT AUTO 0 % (0-1); LYMPHOCYTES ABSOLUTE AUTO 1.15 K/mm3 (0.84-5.20); LYMPHOCYTES PERCENT AUTO 13 % (21-46); MONOCYTES ABSOLUTE AUTO 0.12 K/mm3 (0.16-1.47); MONOCYTES PERCENT AUTO 1 % (4-13); Mean Corpuscular HGB 30.7 pg (26.0-34.0); Mean Corpuscular HGB Conc 34.4 g/dL (31.5-36.5); Mean Corpuscular Volume 89 fL (80-100); Mean Platelet Volume 9.8 fL (9.1-12.4); NEUTROPHILS ABSOLUTE AUTO 7.21 K/mm3 (1.96-9.15); NEUTROPHILS PERCENT AUTO 84 % (41-73); Platelet Count 241 K/mm3 (150-400); RDW Coefficient Variation 12.9 % (11.7-14.2); RDW Standard Deviation 42.5 fL (35.1-46.3); Red Blood Cell Count 5.05 M/mm3 (4.30-5.90); White Blood Cell Count 8.61 K/mm3 (4.00-11.30)
[2023-04-24] MEDS ORDERED: Nicotine 21 MG PATCH TOP SCH (06:00)
[2023-04-24] MEDS ORDERED: Pantoprazole Sodium 40 MG Injection IV SCH (06:00)
[2023-04-24 06:02] LABS: Anion Gap 2 mmol/L (6-16); Blood Urea Nitrogen 15 mg/dL (8-24); Bun/Creatinine Ratio 18.6 (12.0-20.0); CHOL/HDL RATIO 5.6; CO2, Blood 25 mmol/L (21-32); Calcium, Blood 9.1 mg/dL (8.5-10.1); Chloride, Blood 115 mmol/L (98-108); Cholesterol 196 mg/dL (50-200); Creatinine, Blood 0.81 mg/dL (0.60-1.20); Glomerular Filtration Rate 107 (60-); Glucose, Blood 118 mg/dL (70-99); HDL Cholesterol 35 mg/dL (>39); LDL/HDL RATIO 4.2; Low Density Lipoprotein Chol 146 mg/dL (0-110); Potassium, Blood 3.8 mmol/L (3.5-5.5); Sodium, Blood 142 mmol/L (136-145); Triglycerides 73 mg/dL (30-160); Very Low Density Lipoprot Chol 14 mg/dL (6-32)
--- NOTE | 2023-04-24 06:28 | NUR ---
PT TO ROOM ICU9 FROM [facility] WITH [facility] STAFF. DENIES CP OR SOB ON ARRIVAL. TR BAND AND R RADIAL ACCESS SITE VISUALIZED WNL. ARM IMMOBILIZATION BOARD IN PLACE. MONITOR SHOWED SINUS [place] WITH HR IN 50'S. BP STABLE. PATIENT IS ON ROOM AIR WITH SATS > 95%. PIV TO LFA AND LAC, INFUSING NS AT 200mL/HR. TO BEDSIDE AND BOTH WERE ORIENTED TO ROOM. CALL LIGHT WITHIN REACH. DR. JEROME TO BEDSIDE, VENOUS DUPLEX ORDERED FOR TODAY TO ASSESS FOR DVTs D/T PT HX. WILL CONTINUE TO MONITOR AND REPORT TO ONCOMING RN.
--- NOTE | 2023-04-24 08:41 | NUR ---
AM NOTE... ASSUMED CARE OF PT AT 0700. PT IS A&Ox4. PT IS S/P STENT TO THE OM. RIGHT RADIAL SITE IS STABLE WITH TR BAND IN PLACE. PT'S VS STABLE. PT DENIES CHEST PAIN/PRESSURE. HE IS ON RA WITH O2 SATS>90% L/S CLEAR T/O DIM IN THE BASES. CALL LIGHT IN REACH WILL CONTINUE TO MONITOR.
[2023-04-24] MEDS ORDERED: Lisinopril 5 MG Tab PO SCH (09:00)
[2023-04-24] MEDS ORDERED: Clopidogrel Bisulfate 75 MG Tab PO SCH (09:00)
[2023-04-24] MEDS ORDERED: Aspirin 81 MG Chew PO SCH ×2 (09:00)
[2023-04-24] MEDS ORDERED: Metoprolol Tartrate 25 MG Tab PO SCH ×2 (09:00)
[2023-04-24] MEDS ORDERED: Heparin Sodium,Porcine 5,000 UNIT/0.5 ML SDV SC SCH (09:00)
[2023-04-24] MEDS ORDERED: Heparin Sodium,Porcine 5,000 UNIT/0.5 ML SDV SC ONE (12:00)
[2023-04-24] MEDS ORDERED: METO25 PO (13:56)
--- NOTE | 2023-04-24 14:15 | NUR ---
PT D/C HOME... PT D/C HOME AT 1415. PT DENIES ANY CHEST PAIN SINCE THIS AM. VS STABLE. WRITTEN AND VERBAL EDUCATION PROVIDED TO THE PT AND HIS , BOTH VERBALIZED THEIR UNDERSTANDING. NEW MEDICATIONS WERE FAXED TO THE PT'S PHARMACY OF CHOICE. BOTH IVs REMOVED WNL. ALL OF THE PT'S BELONGINGS WERE PACKED AND SENT WITH THE PT.
[2023-04-24] MEDS ORDERED: Atorvastatin 40 MG Tab PO SCH (21:00)
== END 2023-04-24 14:30 | disposition home or self-care (01) ==
LOC: ER 02:46 → ICUE 03:12
PROVIDERS: Internal Medicine Interventional Cardiology; Student in an Organized Health Care Education/Training Program; ADMIT Internal Medicine
DX: I24.89 Other forms of acute ischemic heart disease (principal); I25.10 Atherosclerotic heart disease of native coronary artery without angina pectoris; Z86.718 Personal history of other venous thrombosis and embolism; I10 Essential (primary) hypertension; F17.200 Nicotine dependence, unspecified, uncomplicated; Z86.711 Personal history of pulmonary embolism; Z88.0 Allergy status to penicillin
CPT/HCPCS: 36415; 76937; 80047; 80048; 80053; 80061; 83690; 84484; 85014; 85025; 85347; 85610; 86900; 86901; 93005; 93010; 93458; 93970; 94760; 96374-59; 99152; 99291-25; A9270; C1725; C1769; C1874; C1887; C1894; C9113; C9600; C9606; G0378; J1644; J2250; J3010; J3246; J7030; J7050; Q9967

== ENCOUNTER → 2023-04-26 | Outpatient (CLI) | payer OTHER ==
[~2023-04-26] MED LIST changes: +METO25 PO
== END ==
LOC: LAB 17:04 → LAB SHORT 17:04
DX: R36.1 Hematospermia (principal)
CPT/HCPCS: 87086

== ENCOUNTER 2024-10-28 20:06 | Observation (INO) | payer SELFPAY ==
[~2024-10-28] VITALS: Ht 190.5 cm; Wt 117.9 kg
[~2024-10-28 20:06] MED LIST changes: +LIPITOR80 MG PO; +LISI5 PO; -Prinivil10 MG PO
[2024-10-28] MEDS ORDERED: Morphine Sulfate 4 MG/1 ML Injection IV ONE (20:20)
[2024-10-28 20:26] LABS: Calcium, Ionized (POC) 1.13 mmol/L (1.10-1.46); Chloride (POC) 101 mmol/L (98-108); Creatinine (POC) 1.2 mg/dL (0.8-1.3); Glucose (ISTAT POC) 133 mg/dL (70-99); Hematocrit (POC) 44.0 % (41.0-53.0); Hemoglobin (POC) 15.0 g/dL (13.5-17.5); Potassium (POC) 3.8 mmol/L (3.5-5.5); Sodium (POC) 138 mmol/L (135-148); Total CO2 (POC) 24 mmol/L (21-32)
[2024-10-28 20:28] LABS: BASOPHILS ABSOLUTE AUTO 0.05 K/mm3 (0.00-0.23); BASOPHILS PERCENT AUTO 1 % (0-2); EOSINOPHILS ABSOLUTE AUTO 0.14 K/mm3 (0.00-0.68); EOSINOPHILS PERCENT AUTO 1 % (0-6); Hematocrit 40.4 % (37.0-53.0); Hemoglobin 14.0 g/dL (13.5-17.5); IMMATURE GRAN ABSOLUTE AUTO 0.02 K/mm3 (0.00-0.10); IMMATURE GRAN PERCENT AUTO 0 % (0-1); LYMPHOCYTES ABSOLUTE AUTO 4.52 K/mm3 (0.84-5.20); LYMPHOCYTES PERCENT AUTO 45 % (21-46); MONOCYTES ABSOLUTE AUTO 0.45 K/mm3 (0.16-1.47); MONOCYTES PERCENT AUTO 4 % (4-13); Mean Corpuscular HGB Conc 34.7 g/dL (31.5-36.5); Mean Corpuscular Volume 90 fL (80-100); NEUTROPHILS ABSOLUTE AUTO 4.94 K/mm3 (1.96-9.15); NEUTROPHILS PERCENT AUTO 49 % (41-73); NRBC ABSOLUTE 0.00 K/mm3 (0.00-0.02); NRBC Auto 0.0 /100 WBC (0.0-0.2); Platelet Count 237 K/mm3 (150-400); RDW Coefficient Variation 12.9 % (11.7-14.2); RDW Standard Deviation 42.7 fL (35.1-46.3)
[2024-10-28] MEDS ORDERED: Heparin Sodium 5000 Units/ML 1ML MDV IV ONE (20:35)
[2024-10-28] MEDS ORDERED: FentaNYL Citrate 50 MCG/ML 2 ML Injection ONE ×2 (20:48→21:05)
[2024-10-28] MEDS ORDERED: FentaNYL Citrate 50 MCG/ML 2 ML Injection IV ONE (20:50)
[2024-10-28 20:54] LABS: Alanine Aminotransfer (ALT/SGP 37.0 U/L (12-78); Albumin, Blood 3.3 g/dL (3.4-5.0); Albumin/Globulin Ratio 1.3 (0.8-1.8); Anion Gap 5.0 mmol/L (3-11); Aspartate Aminotrans (AST/SGOT 27.0 U/L (12-37); Bilirubin, Total 0.3 mg/dL (0.1-1.0); Blood Urea Nitrogen 17.0 mg/dL (8-24); CO2, Blood 29.0 mmol/L (21-32); Calcium, Blood 8.3 mg/dL (8.5-10.1); Chloride, Blood 106.0 mmol/L (98-108); Creatinine, Blood 1.09 mg/dL (0.60-1.20); Globulin, Blood 2.6 g/dL (2.2-4.0); Glucose, Blood 139.0 mg/dL (70-99); Potassium, Blood 3.6 mmol/L (3.5-5.5); Sodium, Blood 136.0 mmol/L (136-145); Total Protein, Blood 5.9 g/dL (6.4-8.2)
[2024-10-28] MEDS ORDERED: Nitroglycerin 2 MG/20 ML BTL ONE (21:01)
[2024-10-28] MEDS ORDERED: NS 250 ML IV ONE (21:01)
[2024-10-28] MEDS ORDERED: Verapamil HCL 2.5 MG/ML 2ML Injection ONE (21:01)
[2024-10-28] MEDS ORDERED: NS 1,000 ML IV ONE ×2 (21:01→21:05)
[2024-10-28] MEDS ORDERED: Heparin Sodium 1000 Units/ML 10ML MDV ONE ×2 (21:01→21:35)
[2024-10-28] MEDS ORDERED: Midazolam HCl 1MG / ML 2ML Vial ONE (21:05)
[2024-10-28] MEDS ORDERED: Heparin Sodium,Porcine 5,000 UNIT/0.5 ML SDV SC ONE (22:13)
[2024-10-28] MEDS ORDERED: IBUP200 PO (23:11)
[2024-10-28 23:13] VITALS: BP 138/88
[2024-10-29 00:11] VITALS: BP 140/90
[2024-10-29] MEDS ORDERED: Ondansetron HCl 2 MG / ML 2ML Vial IV PRN (00:35)
[2024-10-29] MEDS ORDERED: NS 1,000 ML IV ONE (00:35)
[2024-10-29 01:00] VITALS: BP 131/83
[2024-10-29 04:01] VITALS: BP 142/99
[2024-10-29 04:39] LABS: BASOPHILS ABSOLUTE AUTO 0.02 K/mm3 (0.00-0.23); BASOPHILS PERCENT AUTO 0 % (0-2); EOSINOPHILS ABSOLUTE AUTO 0.07 K/mm3 (0.00-0.68); EOSINOPHILS PERCENT AUTO 1 % (0-6); Hematocrit 43.9 % (37.0-53.0); Hemoglobin 15.1 g/dL (13.5-17.5); IMMATURE GRAN ABSOLUTE AUTO 0.02 K/mm3 (0.00-0.10); IMMATURE GRAN PERCENT AUTO 0 % (0-1); LYMPHOCYTES ABSOLUTE AUTO 1.46 K/mm3 (0.84-5.20); LYMPHOCYTES PERCENT AUTO 24 % (21-46); MONOCYTES ABSOLUTE AUTO 0.36 K/mm3 (0.16-1.47); MONOCYTES PERCENT AUTO 6 % (4-13); Mean Corpuscular HGB Conc 34.4 g/dL (31.5-36.5); Mean Corpuscular Volume 91 fL (80-100); NEUTROPHILS ABSOLUTE AUTO 4.10 K/mm3 (1.96-9.15); NEUTROPHILS PERCENT AUTO 68 % (41-73); NRBC ABSOLUTE 0.00 K/mm3 (0.00-0.02); NRBC Auto 0.0 /100 WBC (0.0-0.2); Platelet Count 196 K/mm3 (150-400); RDW Coefficient Variation 13.1 % (11.7-14.2); RDW Standard Deviation 43.9 fL (35.1-46.3)
[2024-10-29 05:16] LABS: Alanine Aminotransfer (ALT/SGP 38.0 U/L (12-78); Albumin, Blood 3.2 g/dL (3.4-5.0); Albumin/Globulin Ratio 1.0 (0.8-1.8); Anion Gap 7.0 mmol/L (3-11); Aspartate Aminotrans (AST/SGOT 44.0 U/L (12-37); Bilirubin, Total 0.4 mg/dL (0.1-1.0); Blood Urea Nitrogen 19.0 mg/dL (8-24); CO2, Blood 23.0 mmol/L (21-32); Calcium, Blood 8.2 mg/dL (8.5-10.1); Chloride, Blood 110.0 mmol/L (98-108); Creatinine, Blood 0.81 mg/dL (0.60-1.20); Globulin, Blood 3.1 g/dL (2.2-4.0); Glucose, Blood 108.0 mg/dL (70-99); Potassium, Blood 4.0 mmol/L (3.5-5.5); Sodium, Blood 136.0 mmol/L (136-145); Total Protein, Blood 6.3 g/dL (6.4-8.2)
--- NOTE | 2024-10-29 06:54 | NUR ---
SHIFT SUMMARY: PT TRANSFERRED TO PCU 6 FROM [facility] TREATING INSPECT[facility] AROUND 2244. PT ARRIVES IN HOSPITAL BED. PT ORIENTED TO ROOM AND CALL LIGHT. TR BAND IN PLACE, WITH A SCANT AMOUNT OF BLOOD. PT IS A&OX4. BP ELEVATED 140'S/70'S, ON RA. SR 60'S-70'S. PT STATES HE HASN'T TAKEN ANY PRESCRIPTION MEDICATIONS FOR A YEAR, D/T NO INSURANCE. HIS FIRST REQUEST TO THIS NURSE IS A NICOTINE PATCH. HE IS A CURRENT, 1 PACK A DAY SMOKER, NOT INTERRESTED IN CESSATION. TR BAND OFF, DRESSING WITH SCANT AMOUNT OF BLOOD. NO HEMATOMA, SOFT TO PALPATE. ARM BAND REMAINS IN PLACE. TOLERATING A HEART HEALTHY DIET. INDEPENDENTLY VOIDING LARGE AMOUNTS OF CLEAR, PALE YELLOW URINE IN URINAL. NO BM THIS SHIFT. BED IN LOWEST POSITION, CALL LIGHT WITHIN REACH. CALLS APPROPRIATELY AND IS ABLE TO ADVOCATE NEEDS EFFECTIVELY.
[2024-10-29 08:22] VITALS: BP 155/96
[2024-10-29] MEDS ORDERED: Enoxaparin 40 MG/0.4 ML SYR SC SCH (09:00)
[2024-10-29 10:16] VITALS: BP 147/94
[2024-10-29] MEDS ORDERED: METO50ER PO (10:25)
[2024-10-29] MEDS ORDERED: NITROGLYCERIN0.4 M3 SL (10:26)
--- NOTE | 2024-10-29 11:27 | NUR ---
DISCHARGE SUMMARY THE PT IS A&OX4, CALLS APPRORPAITELY, AND MAKES HIS NEEDS KNOWN. HE IS IND IN THE ROOM AND HAS HAD A BOWEL MOVEMENT THIS SHIFT. THE PT HAD AN ANGIOGRAM 10/28 WITH RIGHT RADIAL ACCESS. TEGADERM C/D/I. SITE WITHOUT ANY REDNESS/SWELLING/S:S OF BLEEDING/OR TENDERNESS. ON TELE HE HAS BEEN SB/SR 50'S-60'S ON TELE. PT WITH SBP 150'S. MEDICATIONS PER EMAR. HE DENIES ANY ANGINA OR CHEST PRESSURE. HE HAS BEEN ON RA W/ SP02 >93% AND DENIES ANY SOB. PT DISCHARGED AT 1125 AND IV'S WERE D/C'D. ALL BELONGINGS WITH THE PT. THE PT'S STENT CARD WAS LEFT BEHIND. THIS RN TRIED TO CALL THE PT'S AND THE PT AND WAS NOT ABLE TO GET AHOLD OF THEM. A CALLBACK VOICEMAIL WAS LEFT.
== END 2024-10-29 11:27 | disposition home or self-care (01) ==
LOC: ER 20:06 → PCU 20:07 → ER 21:40 → PCU 21:40
PROVIDERS: Student in an Organized Health Care Education/Training Program; ADMIT Internal Medicine
DX: I24.9 Acute ischemic heart disease, unspecified (principal); I25.10 Atherosclerotic heart disease of native coronary artery without angina pectoris; I11.9 Hypertensive heart disease without heart failure; I45.10 Unspecified right bundle-branch block; I25.2 Old myocardial infarction; E78.00 Pure hypercholesterolemia, unspecified; F41.8 Other specified anxiety disorders; F17.210 Nicotine dependence, cigarettes, uncomplicated; Z95.5 Presence of coronary angioplasty implant and graft; Z86.711 Personal history of pulmonary embolism; Z86.718 Personal history of other venous thrombosis and embolism; Z79.02 Long term (current) use of antithrombotics/antiplatelets; Z79.82 Long term (current) use of aspirin; Z79.899 Other long term (current) drug therapy; Z88.0 Allergy status to penicillin
CPT/HCPCS: 36415; 71045; 76937; 80047; 80053; 82947; 83880; 84484; 85014; 85025; 93005; 93010; 93306; 93454; 96374; 99152; 99153; 99285-25; A9270; C1725; C1769; C1874; C1887; C1894; C9600; J1644; J1650; J2250; J2270; J3010; J3246; J7030; J7050; Q9967

== ENCOUNTER 2024-11-07 07:40 | Inpatient (IN) | payer SELFPAY ==
[2024-11-07] VITALS (30 sets, daily range): BP systolic 127–172; BP diastolic 73–111
[~2024-11-07] VITALS: Ht 190.5 cm; Wt 112.0 kg
[~2024-11-07 07:40] MED LIST changes: +IBUP200 PO; +NITROGLYCERIN0.4 M3 SL
[2024-11-07] MEDS ORDERED: Morphine Sulfate 4 MG/1 ML Injection IV ONE ×2 (08:00→08:40)
[2024-11-07 08:09] LABS: Calcium, Ionized (POC) 1.17 mmol/L (1.10-1.46); Chloride (POC) 106 mmol/L (98-108); Creatinine (POC) 1.2 mg/dL (0.8-1.3); Glucose (ISTAT POC) 105 mg/dL (70-99); Hematocrit (POC) 48.0 % (41.0-53.0); Hemoglobin (POC) 16.3 g/dL (13.5-17.5); Potassium (POC) 4.2 mmol/L (3.5-5.5); Sodium (POC) 140 mmol/L (135-148); Total CO2 (POC) 25 mmol/L (21-32)
[2024-11-07 08:09] LABS: Calcium, Ionized (POC) 1.08 mmol/L (1.10-1.46); Chloride (POC) 108 mmol/L (98-108); Creatinine (POC) 1.1 mg/dL (0.8-1.3); Glucose (ISTAT POC) 105 mg/dL (70-99); Hematocrit (POC) 50.0 % (41.0-53.0); Hemoglobin (POC) 17.0 g/dL (13.5-17.5); Potassium (POC) 8.5 mmol/L (3.5-5.5); Sodium (POC) 136 mmol/L (135-148); Total CO2 (POC) 25 mmol/L (21-32)
[2024-11-07 08:10] LABS: BASOPHILS ABSOLUTE AUTO 0.04 K/mm3 (0.00-0.23); BASOPHILS PERCENT AUTO 1 % (0-2); EOSINOPHILS ABSOLUTE AUTO 0.09 K/mm3 (0.00-0.68); EOSINOPHILS PERCENT AUTO 1 % (0-6); Hematocrit 48.7 % (37.0-53.0); Hemoglobin 16.7 g/dL (13.5-17.5); IMMATURE GRAN ABSOLUTE AUTO 0.02 K/mm3 (0.00-0.10); IMMATURE GRAN PERCENT AUTO 0 % (0-1); LYMPHOCYTES ABSOLUTE AUTO 3.04 K/mm3 (0.84-5.20); LYMPHOCYTES PERCENT AUTO 37 % (21-46); MONOCYTES ABSOLUTE AUTO 0.45 K/mm3 (0.16-1.47); MONOCYTES PERCENT AUTO 5 % (4-13); Mean Corpuscular HGB Conc 34.3 g/dL (31.5-36.5); Mean Corpuscular Volume 90 fL (80-100); NEUTROPHILS ABSOLUTE AUTO 4.64 K/mm3 (1.96-9.15); NEUTROPHILS PERCENT AUTO 56 % (41-73); NRBC ABSOLUTE 0.00 K/mm3 (0.00-0.02); NRBC Auto 0.0 /100 WBC (0.0-0.2); Platelet Count 265 K/mm3 (150-400); RDW Coefficient Variation 13.2 % (11.7-14.2); RDW Standard Deviation 42.5 fL (35.1-46.3)
[2024-11-07] MEDS ORDERED: Morphine Sulfate 4 MG/1 ML Injection ONE (08:18)
[2024-11-07 08:25] LABS: Prothrombin Time Results 10.3 Sec (9.7-11.5)
[2024-11-07 08:28] LABS: Alanine Aminotransfer (ALT/SGP 44.0 U/L (12-78); Albumin, Blood 4.3 g/dL (3.4-5.0); Albumin/Globulin Ratio 1.2 (0.8-1.8); Anion Gap 8.0 mmol/L (3-11); Aspartate Aminotrans (AST/SGOT 23.0 U/L (12-37); Bilirubin, Total 0.2 mg/dL (0.1-1.0); Blood Urea Nitrogen 18.0 mg/dL (8-24); CO2, Blood 26.0 mmol/L (21-32); Calcium, Blood 9.4 mg/dL (8.5-10.1); Chloride, Blood 106.0 mmol/L (98-108); Creatinine, Blood 1.07 mg/dL (0.60-1.20); Globulin, Blood 3.5 g/dL (2.2-4.0); Glucose, Blood 103.0 mg/dL (70-99); Magnesium, Blood 2.1 mg/dL (1.6-2.4); Potassium, Blood 4.2 mmol/L (3.5-5.5); Sodium, Blood 136.0 mmol/L (136-145); Total Protein, Blood 7.8 g/dL (6.4-8.2)
[2024-11-07] MEDS ORDERED: Diazepam 5 MG / ML 2ML SYR IV ONE (08:30)
[2024-11-07] MEDS ORDERED: FentaNYL Citrate 50 MCG/ML 2 ML Injection IV ONE ×2 (08:50→09:05)
[2024-11-07] MEDS ORDERED: Ondansetron HCl 2 MG / ML 2ML Vial IV ONE (09:05)
[2024-11-07] MEDS ORDERED: HYDROmorphone HCl/Pf 1MG SYR IV ONE (09:50)
[2024-11-07] MEDS ORDERED: Morphine Sulfate 10 MG/ML 1MLSYR IV ONE (10:55)
[2024-11-07] MEDS ORDERED: Heparin Sodium 1000 Units/ML 10ML MDV ONE ×3 (11:18→12:22)
[2024-11-07] MEDS ORDERED: Nitroglycerin 2 MG/20 ML BTL ONE (11:18)
[2024-11-07] MEDS ORDERED: NS 250 ML IV ONE (11:18)
[2024-11-07] MEDS ORDERED: NiCARdipine HCL 1,000 MCG/5 ML SYR ONE (11:18)
[2024-11-07] MEDS ORDERED: NS 1,000 ML IV ONE ×2 (11:18→11:27)
[2024-11-07] MEDS ORDERED: Dose Adjust by Pharmacy XX STA (11:25)
[2024-11-07] MEDS ORDERED: FentaNYL Citrate 50 MCG/ML 2 ML Injection ONE ×2 (11:26→12:38)
[2024-11-07] MEDS ORDERED: NS 500 ML IV ONE (11:27)
[2024-11-07] MEDS ORDERED: Midazolam HCl 1MG / ML 2ML Vial ONE ×2 (11:27→12:39)
[2024-11-07] MEDS ORDERED: Heparin Sodium,Porcine/0.5 NS 500 ML IV SCH (11:30)
[2024-11-07] MEDS ORDERED: HydrALAZINE HCl 20 MG / ML 1ML Vial IV PRN (11:45)
[2024-11-07] MEDS ORDERED: TICA90TA (11:59)
[2024-11-07] MEDS ORDERED: HydrALAZINE HCl 20 MG / ML 1ML Vial ONE (13:00)
[2024-11-07] MEDS ORDERED: Acetaminophen/Codeine 300-30 mg PO PRN (14:15)
[2024-11-07] MEDS ORDERED: NS 1,000 ML IV SCH (14:15)
[2024-11-07] MEDS ORDERED: Morphine Sulfate 4 MG/1 ML Injection IV PRN ×2 (16:05→17:10)
--- NOTE | 2024-11-07 17:12 | NUR ---
PROVIDER CONTACT PT HAD REPORTED 4/10 CHEST PAIN UPON ARRIVAL TO ICU FROM [facility]. DESPITE RECIEVING TYLENOL 3'S X2 AND IV MORPHING 2MG PT REPORTING WORSENING 5/[address] PASTOR CALLED WHO CAME TO BEDISDE. PER DR. BLOOM REPEAT EKG AND POSTERIOR EKG PERFORMED WELL SL NITRO X2 GIVEN. NO RELIEF REPORTED FROM NITRO AND PER SENIOR PL SQL DEVELOPER NO NEW CONCERN FOR ACS FROM THE EKG'S. DR. MAYES CALLED FOR NEW PAIN MEDICATION ORDERS. DR. BROWN EXPRESSING INTENT ON ORDERING PE STUDY. MAINTENANCE SERVICE DISPATCHER ALLAN NOTIFIED.
--- NOTE | 2024-11-07 18:18 | NUR ---
DAY SHIFT SUMMARY PT ARRIVED TO ICU FROM [facility] AND HAS REMAINED ALERT AND ORIENTED COMMUNICATING APPROPRIATELY W STAFF. PT REPORTING CHEST PAIN WHICH LATER BECAME WORSE (SEE PREVIOUS NOTE) AND ULTIMATELY IMPROVED AFTER ADDITIONAL 4 MG IV MORPHINE. PRIOR TO THE 4 MG DOSE OF MORPHINE PT HAD BEEN GIVEN NITRO X2 W NO RELIEF. BP ELEVATED ON ARRIVAL AND PT WAS GIVEN HYDRALAZINE X1 BY THIS RN AND BP IMPROVED FOR A TIME BUT SBP REMAIN 140'S-150'S. MONITOR SHOWING SR 70'S-80'S W OCCASIONAL PVC. PT CURRENTLY REPORTING 2/10 CHEST PAIN THAT IS ACHING BUT IMPROVING. SPO2 >92% ON RM AIR. PT DENYING ANY NAUSEA THIS SHIFT AND IS TOLERATING PO INTAKE. PT VOIDING WELL USING THE URINAL IN BED W ASSISTANCE. PT'S PCI RADIAL SITE HAS TR BAND OFF AND IS PAINLESS W NO HEMATOMA. PT'S FAMILY AT BEDSIDE FOR MOST OF THE DAY IN ICU. PT TAKEN TO PE STUDY PER DR. BROWN, PENDING RESULTS. WILL REPORT TO ONCOMING RN.
[2024-11-07] MEDS ORDERED: Ondansetron HCl 2 MG / ML 2ML Vial ONE (18:49)
[2024-11-07] MEDS ORDERED: Ondansetron HCl 2 MG / ML 2ML Vial IV PRN (18:50)
--- NOTE | 2024-11-07 19:43 | NUR ---
ASSUMPTION OF CARE ASSUMED PT'S CARE AT 1900,BEDSIDE REPORT COMPLETED.PT WIDE AWAKE SITTING UP IN BED,FAMILY AT THE BEDSIDE.PLAN OF CARE REVIEWED.RIGHT RADIAL ACCESS SITE ASSESSED.NO REDNESS OR DRAINAGE NOTED AT THE SITE.AREA SOFT,RADIAL PULSES STRONG.PT ENDORSES CHEST PAIN RATING PAIN AT 2/10.DENIES NEED FOR INTERVENTION AT THIS TIME.CALL LIGHT AND PT'S ITEMS WITHIN REACH.MONITORING ONGOING PER CAREPLAN.
[2024-11-08] VITALS (15 sets, daily range): BP systolic 120–151; BP diastolic 73–101
[2024-11-08 03:26] LABS: BASOPHILS ABSOLUTE AUTO 0.03 K/mm3 (0.00-0.23); BASOPHILS PERCENT AUTO 0 % (0-2); EOSINOPHILS ABSOLUTE AUTO 0.04 K/mm3 (0.00-0.68); EOSINOPHILS PERCENT AUTO 0 % (0-6); Hematocrit 46.3 % (37.0-53.0); Hemoglobin 16.3 g/dL (13.5-17.5); IMMATURE GRAN ABSOLUTE AUTO 0.03 K/mm3 (0.00-0.10); IMMATURE GRAN PERCENT AUTO 0 % (0-1); LYMPHOCYTES ABSOLUTE AUTO 1.77 K/mm3 (0.84-5.20); LYMPHOCYTES PERCENT AUTO 16 % (21-46); MONOCYTES ABSOLUTE AUTO 0.61 K/mm3 (0.16-1.47); MONOCYTES PERCENT AUTO 5 % (4-13); Mean Corpuscular HGB Conc 35.2 g/dL (31.5-36.5); Mean Corpuscular Volume 89 fL (80-100); NEUTROPHILS ABSOLUTE AUTO 8.97 K/mm3 (1.96-9.15); NEUTROPHILS PERCENT AUTO 78 % (41-73); NRBC ABSOLUTE 0.00 K/mm3 (0.00-0.02); NRBC Auto 0.0 /100 WBC (0.0-0.2); Platelet Count 219 K/mm3 (150-400); RDW Coefficient Variation 13.2 % (11.7-14.2); RDW Standard Deviation 43.0 fL (35.1-46.3)
[2024-11-08 03:46] LABS: Anion Gap 8 mmol/L (3-11); Blood Urea Nitrogen 12 mg/dL (8-24); CHOL/HDL RATIO 6.0; CO2, Blood 24 mmol/L (21-32); Calcium, Blood 8.6 mg/dL (8.5-10.1); Chloride, Blood 108 mmol/L (98-108); Cholesterol 210 mg/dL (50-200); Creatinine, Blood 0.90 mg/dL (0.60-1.20); Glucose, Blood 113 mg/dL (70-99); HDL Cholesterol 35 mg/dL (>39); LDL/HDL RATIO 4.2; Low Density Lipoprotein Chol 147 mg/dL (0-110); Potassium, Blood 4.0 mmol/L (3.5-5.5); Sodium, Blood 136 mmol/L (136-145); Triglycerides 141 mg/dL (30-160); Very Low Density Lipoprot Chol 28 mg/dL (6-32)
--- NOTE | 2024-11-08 06:25 | NUR ---
PT MONITORED DURING THE SHIFT,PRN PAIN MEDS GIVEN ORDERED FOR CHEST PAIN OF 4/10.PT REPORTED RELIEF OF PAIN AFTER THE PAIN MED ADMINISTRATION.VSS,NO C/O SOB OR DISCOMFORT THIS AT THIS TIME.PT DENIES NEEDS.CALL LIGHT AND PT'S ITEMS WITHIN REACH.MONITORING ONGOING PER CAREPLAN.
[2024-11-08] MEDS ORDERED: NICO21TP TOP (11:28)
[2024-11-08] MEDS ORDERED: PRASUGREL HCL10 MG PO (11:29)
--- NOTE | 2024-11-08 13:26 | NUR ---
Discharge Home Pt A&O x4. Independent. VSS. Spo2 > 92% on RA. Monitor showing SR, HR 70s-80s. Pt denying CP but reporting 2/10 tightness, especially w/ deep breaths. Service Liaison Representative to bedside & aware. EKG done. Service Liaison Representative w/ okay for discharge home. EFM provider w/ orders for discharge home. Discharge instructions reviewed w/ pt & sent home w/ pt. PIV removed. Pt taken out in wheelchair w/ belongings.
== END 2024-11-08 12:00 | disposition home or self-care (01) | DRG 321 ==
LOC: ER 07:40 → ICUE 11:28
PROVIDERS: Internal Medicine Cardiovascular Disease; Student in an Organized Health Care Education/Training Program; ADMIT Internal Medicine
PROC: 027034Z Dilation of Coronary Artery, One Artery with Drug-eluting Intraluminal Device, Percutaneous Approach (ICD-10-PCS; principal; 2024-11-07)
PROC: B2111ZZ Fluoroscopy of Multiple Coronary Arteries using Low Osmolar Contrast (ICD-10-PCS; 2024-11-07)
PROC: 4A023N7 Measurement of Cardiac Sampling and Pressure, Left Heart, Percutaneous Approach (ICD-10-PCS; 2024-11-07)
DX: T82.855A Stenosis of coronary artery stent, initial encounter (principal); I21.A9 Other myocardial infarction type; I25.10 Atherosclerotic heart disease of native coronary artery without angina pectoris; I10 Essential (primary) hypertension; M54.9 Dorsalgia, unspecified; G89.29 Other chronic pain; F41.9 Anxiety disorder, unspecified; F32.A Depression, unspecified; E78.5 Hyperlipidemia, unspecified; E66.9 Obesity, unspecified; E78.00 Pure hypercholesterolemia, unspecified; Z68.32 Body mass index [BMI] 32.0-32.9, adult; I44.4 Left anterior fascicular block; Z79.01 Long term (current) use of anticoagulants; Z86.711 Personal history of pulmonary embolism; Z86.718 Personal history of other venous thrombosis and embolism; Z71.6 Tobacco abuse counseling; Z79.82 Long term (current) use of aspirin; Z79.02 Long term (current) use of antithrombotics/antiplatelets; Z79.899 Other long term (current) drug therapy; Z88.0 Allergy status to penicillin; I45.10 Unspecified right bundle-branch block; Z98.1 Arthrodesis status; Z98.890 Other specified postprocedural states
CPT/HCPCS: 36415; 71045; 71260; 71275; 74175; 76937; 80047; 80048; 80053; 80061; 83735; 83880; 84484; 85014; 85025; 85347; 85520; 85610; 85730; 86850; 86900; 86901; 92978; 93005; 93010; 93308; 93321; 93454; 96374-59; 96375-59; 96376-59; 99152; 99153; 99285-25; A9270; C1725; C1753; C1769; C1874; C1887; C1894; C9600; J0360; J1171; J1644; J2250; J2270; J2405; J3010; J3360; J7030; J7040; J7050; Q9967